=== PATIENT | female | born 1945 | race Caucasian/White ===

== ENCOUNTER 2019-03-22 08:30 | Day surgery (SDC) | payer MEDICARE, OTHER ==
[~2019-03-22] VITALS: Ht 152.4 cm; Wt 60.7 kg
[~2019-03-22 08:30] MED LIST: LORA10TA3 PO; LOSA50TA14 PO; OXYB5SYR2 PO
[2019-03-22 09:25] VITALS: Ht 152.4 cm; Wt 60.7 kg
[2019-03-22 09:41] VITALS: BP 140/71; PULSE 68; RESP 18
[2019-03-22 10:35] VITALS: BP 126/67; PULSE 80; RESP 19
[2019-03-22 11:17] VITALS: BP 103/58; PULSE 64; PULSE 65; RESP 19; RESP 20
[2019-03-22 11:20] VITALS: BP 115/58; PULSE 64; PULSE 65; RESP 20
[2019-03-22 11:25] VITALS: BP 113/56; PULSE 77; RESP 19
[2019-03-22] MEDS ORDERED: FENTAnyl 50 MCG/ML VIAL ONE (12:13)
[2019-03-22] MEDS ORDERED: MIDAZOLAM 1 MG/ML 2 ML INJ ONE ×2 (12:13)
== END 2019-03-22 14:31 | disposition home or self-care (01) ==
LOC: GIL 08:30
PROVIDERS: ATTEND Internal Medicine Gastroenterology
DX: R19.4 Change in bowel habit (principal); K64.0 First degree hemorrhoids; I10 Essential (primary) hypertension
CPT/HCPCS: 45378; J2250; J3010